=== PATIENT | female | born 1945 | race Caucasian/White ===

== ENCOUNTER 2023-06-29 19:56 | Inpatient (IN) | payer SELFPAY ==
[2023-06-29 20:28] LABS: BASO % 0.8 % (0-2.0); EOS % 3.9 % (0-4.5); HEMATOCRIT 39.6 % (32.4-45.2); HEMOGLOBIN 13.9 GM/dL (10.7-15.3); LYMPH % 33.3 % (8-40); MCH 28.3 pg (25.7-33.7); MCHC 35.2 g/dl (32.0-36.0); MEAN CELL VOLUME 80.6 fl (80-96); MEAN PLT VOLUME 7.7 fl (7.5-11.1); MONO % 10.7 % (3.8-10.2); NEUT % 51.3 % (42.8-82.8); PLATELET COUNT 326 10^3/uL (134-434); RBC 4.92 M/mm3 (3.60-5.2); RDW 14.2 % (11.6-15.6); WHITE BLOOD COUNT 7.3 K/mm3 (4.0-10.0)
[2023-06-29 20:37] LABS: INR 0.9 (0.83-1.09); PROTHROMBIN TIME (PATIENT) 10.5 SEC (9.7-13.0)
[2023-06-29 20:39] LABS: ACTIVATED PTT 29.9 SECONDS (25.2-36.5)
[2023-06-29 20:51] LABS: CALCIUM 9.6 mg/dL (8.5-10.1)
[2023-06-29 20:52] LABS: ALBUMIN 4.4 g/dl (3.4-5.0)
[2023-06-29 20:53] LABS: BLOOD UREA NITROGEN 21.5 mg/dL (7-18)
[2023-06-29 20:55] LABS: CREATININE 0.8 mg/dL (0.55-1.3)
[2023-06-29 20:57] LABS: TOT PROT 7.7 g/dl (6.4-8.2)
[2023-06-29 20:58] LABS: BILIRUBIN,TOTAL 0.3 mg/dL (0.2-1)
[2023-06-29] MEDS ORDERED: ASPIRIN 325 MG TABLET ONE (22:06)
[2023-06-29] MEDS ORDERED: ASPIRIN 81 MG CHEWABLE TABLETS PO ONE (22:19)
[2023-06-30] MEDS: INSULIN SLIDING SCALE (NOVOLOG) 1 VIAL SQ SCH ×4 (08:41→22:32)
[2023-06-30 09:02] LABS: POTASSIUM 3.8 mmol/L (3.5-5.1)
[2023-06-30 09:07] LABS: HEMATOCRIT 38.3 % (32.4-45.2); HEMOGLOBIN 13.9 GM/dL (10.7-15.3); MCHC 36.5 g/dl (32.0-36.0); MEAN CELL VOLUME 79.5 fl (80-96); MEAN PLT VOLUME 8.5 fl (7.5-11.1); PLATELET COUNT 338 10^3/uL (134-434); RBC 4.81 M/mm3 (3.60-5.2); RDW 14.3 % (11.6-15.6); WHITE BLOOD COUNT 8.2 K/mm3 (4.0-10.0)
[2023-06-30 09:09] LABS: ALBUMIN 3.9 g/dl (3.4-5.0); BLOOD UREA NITROGEN 15.4 mg/dL (7-18); CALCIUM 8.9 mg/dL (8.5-10.1); MAGNESIUM 2.1 mg/dL (1.8-2.4)
[2023-06-30 09:12] LABS: CREATININE 0.6 mg/dL (0.55-1.3)
[2023-06-30 09:14] LABS: BILIRUBIN,TOTAL 0.6 mg/dL (0.2-1)
[2023-06-30] MEDS: ENOXAPARIN NA (PORCINE) 40 MG/0.4 ML DISP.SYRIN SQ SCH (10:19)
[2023-06-30] MEDS: ASPIRIN COATED 81 MG TABLET.EC PO SCH (10:19)
[2023-06-30 13:45] LABS: EPI CELLS 5 /uL (0-25.1); HYALINE CASTS 0 /uL (0-3.1); PH,URINE 5.5 (5.0-8.0); URINE APPEARANCE CLOUDY; URINE BACTERIA >9,000 /uL (0-1359); URINE BILIRUBIN NEGATIVE (NEGATIVE); URINE COLOR YELLOW; URINE GLUCOSE (UA) 3+ (NEGATIVE); URINE KETONE 1+ (NEGATIVE); URINE LEUK ESTERASE 1+ (NEGATIVE); URINE NITRITE NEGATIVE (NEGATIVE); URINE PROTEIN NEGATIVE (NEGATIVE); URINE RBC 18 /uL (0-23.9); URINE UROBILINOGEN 0.2 mg/dL (0.2-1.0); URINE WBC 1059 /uL (0-25.8)
[2023-06-30 18:32] VITALS: BMI 24.6
[2023-06-30] MEDS ORDERED: ATORVASTATIN CA 40 MG TABLET (FP) PO SCH (22:00)
[2023-06-30] MEDS: ATORVASTATIN CA 40 MG TABLET (FP) PO SCH (22:27)
[2023-07-01] MEDS: INSULIN SLIDING SCALE (NOVOLOG) 1 VIAL SQ SCH ×4 (07:16→21:34)
[2023-07-01] MEDS: ENOXAPARIN NA (PORCINE) 40 MG/0.4 ML DISP.SYRIN SQ SCH (10:31)
[2023-07-01] MEDS: CLOPIDOGREL BISULFATE 75 MG TABLET (FP) PO SCH (10:31)
[2023-07-01] MEDS: ASPIRIN COATED 81 MG TABLET.EC PO SCH (10:31)
[2023-07-01] MEDS: ATORVASTATIN CA 40 MG TABLET (FP) PO SCH (21:34)
[2023-07-02 03:14] VITALS: RESP 18
[2023-07-02] MEDS: INSULIN SLIDING SCALE (NOVOLOG) 1 VIAL SQ SCH ×3 (06:40→16:55)
[2023-07-02 07:27] LABS: BASO % 0.6 % (0-2.0); EOS % 3.8 % (0-4.5); HEMATOCRIT 40.4 % (32.4-45.2); HEMOGLOBIN 13.7 GM/dL (10.7-15.3); LYMPH % 38.1 % (8-40); MCH 27.6 pg (25.7-33.7); MCHC 33.9 g/dl (32.0-36.0); MEAN CELL VOLUME 81.3 fl (80-96); MEAN PLT VOLUME 7.7 fl (7.5-11.1); MONO % 13.1 % (3.8-10.2); NEUT % 44.4 % (42.8-82.8); PLATELET COUNT 335 10^3/uL (134-434); RBC 4.97 M/mm3 (3.60-5.2); WHITE BLOOD COUNT 6.3 K/mm3 (4.0-10.0)
[2023-07-02 07:41] LABS: POTASSIUM 3.9 mmol/L (3.5-5.1)
[2023-07-02 07:44] LABS: CALCIUM 9.1 mg/dL (8.5-10.1)
[2023-07-02 07:45] LABS: BLOOD UREA NITROGEN 16.3 mg/dL (7-18)
[2023-07-02 07:48] LABS: CREATININE 0.6 mg/dL (0.55-1.3)
[2023-07-02] MEDS: ENOXAPARIN NA (PORCINE) 40 MG/0.4 ML DISP.SYRIN SQ SCH (09:06)
[2023-07-02] MEDS: ASPIRIN COATED 81 MG TABLET.EC PO SCH (09:06)
[2023-07-02] MEDS: CLOPIDOGREL BISULFATE 75 MG TABLET (FP) PO SCH (09:06)
[2023-07-02 18:24] VITALS: BP 148/72; PULSE 71; TEMP 97.6
== END 2023-07-02 19:04 | disposition home or self-care (01) | DRG 45 ==
LOC: JER 19:56 → JERBED 23:59 → J4S 06-30 18:00
PROVIDERS: ADMIT Internal Medicine; ATTEND Internal Medicine
DX: I63.9 Cerebral infarction, unspecified (principal); R29.705 NIHSS score 5; I10 Essential (primary) hypertension; E11.9 Type 2 diabetes mellitus without complications; I65.29 Occlusion and stenosis of unspecified carotid artery; I69.322 Dysarthria following cerebral infarction; I69.351 Hemiplegia and hemiparesis following cerebral infarction affecting right dominant side
CPT/HCPCS: 36415; 70450-TC; 70496-TC; 70498-TC; 70551-TC; 71045-TC-FY; 80048; 80053; 80061; 81003; 82550; 82962; 83036; 83735; 84100; 84439; 84443; 84484; 85025; 85027; 85610; 85730; 86850; 86900; 86901; 93005; 93010; 93306-TC; 97116-GP; 97161-GP; 99285-25